=== PATIENT | female | born 2000 | race Caucasian/White ===

== ENCOUNTER 2021-02-12 16:22 | Emergency (ER) | payer MEDICAID, SELFPAY ==
[~2021-02-12] VITALS: Ht 160 cm; Wt 72.7 kg
[2021-02-12 20:51] VITALS: BP 123/58
== END 2021-02-12 21:21 | disposition home or self-care (01) ==
LOC: M ED 16:22
DX: J06.9 Acute upper respiratory infection, unspecified (principal); B34.9 Viral infection, unspecified; F17.210 Nicotine dependence, cigarettes, uncomplicated
CPT/HCPCS: 99283; U0003

== ENCOUNTER 2021-12-02 17:23 | Emergency (ER) | payer MEDICAID, OTHER ==
[~2021-12-02] VITALS: Ht 160 cm; Wt 52.3 kg
[2021-12-02 17:24] VITALS: BP 138/82
[2021-12-02] MEDS ORDERED: NS 1,000 ML IV ONE (18:45)
[2021-12-02 19:36] LABS: BASO % 0.3 % (0.0-1.0); EOS % 0.3 % (0.0-3.0); HEMATOCRIT 38.3 % (36.0-47.0); HEMOGLOBIN 12.7 g/dl (12.0-15.5); LYMPH % 23.1 % (24.0-44.0); MEAN CORPUSCULAR HEMOGLOBIN 31.2 pg (27.0-33.0); MEAN CORPUSCULAR HGB CONC 33.2 g/dl (32.0-36.5); MEAN CORPUSCULAR VOLUME 94.1 fl (80.0-96.0); MONO # 0.4 10^3/uL (0.0-0.8); MONO % 4.9 % (2.0-8.0); NEUTROPHILS # 6.3 10^3/uL (1.5-8.5); NEUTROPHILS % 71.1 % (36.0-66.0); PLATELET COUNT, AUTOMATED 229 10^3/uL (150-450); RED BLOOD COUNT 4.07 10^6/uL (4.00-5.40); WHITE BLOOD COUNT 8.9 10^3/uL (4.0-10.0)
[2021-12-02] MEDS ORDERED: ISOVUE-370 76% 100ML VIAL As Ordered ONE (19:43)
[2021-12-02 19:49] LABS: ALBUMIN 4.4 GM/DL (3.2-5.2); ALT/SGPT 27 U/L (12-78); BILIRUBIN,DIRECT 0.2 MG/DL (0.0-0.2); BILIRUBIN,TOTAL 0.7 MG/DL (0.2-1.0); LIPASE 73 U/L (73-393); TOTAL PROTEIN 7.5 GM/DL (6.4-8.2)
[2021-12-02 20:48] LABS: HCG, SERUM QUALITATIVE NEGATIVE (NEGATIVE)
== END 2021-12-02 21:25 | disposition home or self-care (01) ==
LOC: M ED 17:23
DX: N83.01 Follicular cyst of right ovary (principal)
CPT/HCPCS: 74177; 80047; 80076; 83605; 83690; 84703; 85025; 96360; 99283; Q9967

== ENCOUNTER 2022-10-09 14:58 | Emergency (ER) | payer OTHER ==
[~2022-10-09] VITALS: Ht 160 cm; Wt 62.2 kg
[2022-10-09 15:31] LABS: BASO % 0.2 % (0.0-1.0); EOS # 0.1 10^3/uL (0.0-0.5); EOS % 0.6 % (0.0-3.0); HEMATOCRIT 40.7 % (36.0-47.0); HEMOGLOBIN 13.6 g/dl (12.0-15.5); LYMPH # 2.4 10^3/uL (1.5-5.0); LYMPH % 22.7 % (24.0-44.0); MEAN CORPUSCULAR HEMOGLOBIN 31.1 pg (27.0-33.0); MEAN CORPUSCULAR HGB CONC 33.4 g/dl (32.0-36.5); MEAN CORPUSCULAR VOLUME 93.1 fl (80.0-96.0); MONO # 0.5 10^3/uL (0.0-0.8); MONO % 4.5 % (2.0-8.0); NEUTROPHILS # 7.4 10^3/uL (1.5-8.5); NEUTROPHILS % 71.6 % (36.0-66.0); PLATELET COUNT, AUTOMATED 255 10^3/uL (150-450); RED BLOOD COUNT 4.37 10^6/uL (4.00-5.40); WHITE BLOOD COUNT 10.4 10^3/uL (4.0-10.0)
[2022-10-09 15:59] LABS: BLOOD UREA NITROGEN 6 MG/DL (9-23); CALCIUM LEVEL 9.5 MG/DL (8.5-10.1); CARBON DIOXIDE LEVEL 27 MMOL/L (20-31); CHLORIDE LEVEL 102 MMOL/L (98-107); CREATININE FOR GFR 0.58 MG/DL (0.55-1.30); GLOMERULAR FILTRATION RATE > 60.0 (>60); GLUCOSE, FASTING 84 MG/DL (60-100); POTASSIUM SERUM 4.2 MMOL/L (3.5-5.1); SODIUM LEVEL 135 MMOL/L (136-145)
[2022-10-09 23:54] LABS: HCG, SERUM QUANTITATIVE 128494.9 MIU/ML (<4.2)
[2022-10-10] MEDS ORDERED: MACR100C43 PO (01:48)
[2022-10-10] MEDS ORDERED: NITROFURANTOIN (MACROBID) 100 MG CAP PO ONE (01:50)
[2022-10-10 02:07] VITALS: BP 110/65
== END 2022-10-10 02:09 | disposition home or self-care (01) ==
LOC: M ED 14:58
DX: O23.10 Infections of bladder in pregnancy, unspecified trimester (principal); O99.281 Endocrine, nutritional and metabolic diseases complicating pregnancy, first trimester; Z3A.01 Less than 8 weeks gestation of pregnancy; O34.81 Maternal care for other abnormalities of pelvic organs, first trimester; O34.531 Maternal care for retroversion of gravid uterus, first trimester

== ENCOUNTER → 2022-10-30 | Outpatient (CLI) | payer OTHER ==
[~2022-10-30] MED LIST: MACR100C43 PO
[2022-10-30 15:38] LABS: HEMATOCRIT 36.9 % (36.0-47.0); HEMOGLOBIN 12.4 g/dl (12.0-15.5); MEAN CORPUSCULAR HEMOGLOBIN 31.2 pg (27.0-33.0); MEAN CORPUSCULAR HGB CONC 33.6 g/dl (32.0-36.5); MEAN CORPUSCULAR VOLUME 92.7 fl (80.0-96.0); PLATELET COUNT, AUTOMATED 226 10^3/uL (150-450); RED BLOOD COUNT 3.98 10^6/uL (4.00-5.40); WHITE BLOOD COUNT 8.8 10^3/uL (4.0-10.0)
[2022-10-30 17:07] LABS: GC DNA AMPLIFICATION NEGATIVE (NEGATIVE)
[2022-10-30 21:16] LABS: HIV 1&2 SCREEN CENTAUR NEGATIVE (NEGATIVE)
== END ==
LOC: M PLALAB 13:19
PROVIDERS: ATTEND Advanced Practice Midwife
DX: Z34.91 Encounter for supervision of normal pregnancy, unspecified, first trimester (principal)

== ENCOUNTER → 2022-11-23 | Outpatient (CLI) | payer OTHER ==
[2022-11-23 17:11] LABS: HEMATOCRIT 35.9 % (36.0-47.0); HEMOGLOBIN 11.7 g/dl (12.0-15.5); MEAN CORPUSCULAR HGB CONC 32.6 g/dl (32.0-36.5); MEAN CORPUSCULAR VOLUME 95.2 fl (80.0-96.0); PLATELET COUNT, AUTOMATED 216 10^3/uL (150-450); RED BLOOD COUNT 3.77 10^6/uL (4.00-5.40); WHITE BLOOD COUNT 8.5 10^3/uL (4.0-10.0)
[2022-11-23 18:01] LABS: HIV 1&2 SCREEN CENTAUR NEGATIVE (NEGATIVE)
[2022-11-23 18:10] LABS: HEPATITIS C VIRUS ABY INDEX < 0.0 INDEX (<0.8)
[2022-11-23 18:41] LABS: GC DNA AMPLIFICATION NEGATIVE (NEGATIVE)
== END ==
LOC: M PLALAB 14:54
PROVIDERS: ATTEND Advanced Practice Midwife
DX: Z34.81 Encounter for supervision of other normal pregnancy, first trimester (principal)

== ENCOUNTER → 2022-11-23 | Outpatient (REF) | payer MEDICARE | LOC: M PLALAB 14:43 | PROVIDERS: ATTEND Advanced Practice Midwife | DX: Z34.01 Encounter for supervision of normal first pregnancy, first trimester (principal) ==

== ENCOUNTER → 2022-12-21 | Outpatient (CLI) | payer OTHER | LOC: M WHC 11:57 | PROVIDERS: ATTEND Advanced Practice Midwife | DX: Z36.89 Encounter for other specified antenatal screening (principal); Z3A.18 18 weeks gestation of pregnancy ==

== ENCOUNTER → 2023-01-18 | Outpatient (REF) | payer MEDICARE ==
[2023-01-18 15:11] LABS: GC DNA AMPLIFICATION NEGATIVE (NEGATIVE)
== END ==
LOC: M PLALAB 10:37
PROVIDERS: ATTEND Obstetrics & Gynecology
DX: Z34.02 Encounter for supervision of normal first pregnancy, second trimester (principal)

== ENCOUNTER 2023-02-04 23:39 | Emergency (ER) | payer MEDICARE, OTHER ==
[2023-02-05 03:12] VITALS: BP 124/69
[2023-02-05 03:12] LABS: BASO % 0.2 % (0.0-1.0); EOS # 0.2 10^3/uL (0.0-0.5); EOS % 1.4 % (0.0-3.0); HEMATOCRIT 28.8 % (36.0-47.0); HEMOGLOBIN 9.8 g/dl (12.0-15.5); LYMPH # 2.8 10^3/uL (1.5-5.0); LYMPH % 24.6 % (24.0-44.0); MEAN CORPUSCULAR VOLUME 94.1 fl (80.0-96.0); MONO # 0.7 10^3/uL (0.0-0.8); MONO % 5.7 % (2.0-8.0); NEUTROPHILS # 7.7 10^3/uL (1.5-8.5); NEUTROPHILS % 67.6 % (36.0-66.0); PLATELET COUNT, AUTOMATED 194 10^3/uL (150-450); RED BLOOD COUNT 3.06 10^6/uL (4.00-5.40); WHITE BLOOD COUNT 11.3 10^3/uL (4.0-10.0)
[2023-02-05 03:36] LABS: LIPASE 24 U/L (12-53)
[2023-02-05 03:38] LABS: ALKALINE PHOSPHATASE 49 U/L (46-116); ALT/SGPT 16 U/L (7.0-40); AST/SGOT 20 U/L (<34); BILIRUBIN,TOTAL 0.3 MG/DL (0.3-1.2); BLOOD UREA NITROGEN 13 MG/DL (9-23); CALCIUM LEVEL 8.1 MG/DL (8.5-10.1); CARBON DIOXIDE LEVEL 26 MMOL/L (20-31); CHLORIDE LEVEL 106 MMOL/L (98-107); CREATININE FOR GFR 0.49 MG/DL (0.55-1.30); GLOMERULAR FILTRATION RATE > 60.0 (>60); GLUCOSE, FASTING 79 MG/DL (60-100); POTASSIUM SERUM 3.9 MMOL/L (3.5-5.1); SODIUM LEVEL 138 MMOL/L (136-145); TOTAL PROTEIN 5.8 G/DL (5.7-8.2)
[2023-02-05 05:17] LABS: AMORPHOUS SEDIMENT LARGE (NEGATIVE); APPEARANCE, URINE CLOUDY (CLEAR); BACTERIA, URINE AUTO NEGATIVE (NEGATIVE); BILIRUBIN, URINE AUTO NEGATIVE (NEGATIVE); BLOOD, URINE BLOOD NEGATIVE (NEGATIVE); COLOR, URINE YELLOW (YELLOW); GLUCOSE, URINE (UA) AUTO NEGATIVE (NEGATIVE); KETONE, URINE AUTO NEGATIVE (NEGATIVE); LEUKOCYTE ESTERASE, URINE AUTO 3+ (NEGATIVE); NITRITE, URINE AUTO NEGATIVE (NEGATIVE); PROTEIN, URINE AUTO NEGATIVE (NEGATIVE); RBC, URINE AUTO 1 /HPF (0-3); SPECIFIC GRAVITY URINE AUTO 1.019 (1.002-1.035); SQUAMOUS EPITHELIAL CELL UR AU 9 /HPF (0-6); UROBILINOGEN, URINE AUTO 0.2 mg/dL (0.0-2.0); WBC, URINE AUTO 1 /HPF (0-3)
== END 2023-02-05 04:23 | disposition admitted as inpatient to this hospital (09) ==
LOC: M ED 23:39
DX: O26.899 Other specified pregnancy related conditions, unspecified trimester (principal); M54.2 Cervicalgia; O99.012 Anemia complicating pregnancy, second trimester; Z3A.24 24 weeks gestation of pregnancy

== ENCOUNTER 2023-02-05 04:30 | Outpatient (CLI) | payer OTHER ==
[~2023-02-05] VITALS: Ht 160 cm; Wt 73.2 kg
[2023-02-05] MEDS ORDERED: LR 1,000 ML IV ONE (05:45)
== END 2023-02-05 07:55 | disposition home or self-care (01) ==
LOC: M LDO 04:30
PROVIDERS: ATTEND Specialist
DX: Z04.1 Encounter for examination and observation following transport accident (principal); Z3A.24 24 weeks gestation of pregnancy
CPT/HCPCS: 59025; G0463

== ENCOUNTER → 2023-02-17 | Outpatient (CLI) | payer MEDICARE, OTHER ==
[2023-02-17 16:12] LABS: HEMATOCRIT 32.3 % (36.0-47.0); HEMOGLOBIN 10.5 g/dl (12.0-15.5); MEAN CORPUSCULAR HEMOGLOBIN 31.6 pg (27.0-33.0); MEAN CORPUSCULAR HGB CONC 32.5 g/dl (32.0-36.5); MEAN CORPUSCULAR VOLUME 97.3 fl (80.0-96.0); PLATELET COUNT, AUTOMATED 202 10^3/uL (150-450); RED BLOOD COUNT 3.32 10^6/uL (4.00-5.40); WHITE BLOOD COUNT 9.7 10^3/uL (4.0-10.0)
[2023-02-17 16:38] LABS: GC DNA AMPLIFICATION NEGATIVE (NEGATIVE)
== END ==
LOC: M PLALAB 11:29
PROVIDERS: ATTEND Obstetrics & Gynecology
DX: Z34.02 Encounter for supervision of normal first pregnancy, second trimester (principal)

== ENCOUNTER → 2023-02-17 | Outpatient (REF) | payer MEDICARE | LOC: M PLALAB 15:09 | PROVIDERS: ATTEND Advanced Practice Midwife | DX: Z34.02 Encounter for supervision of normal first pregnancy, second trimester (principal) ==

== ENCOUNTER → 2023-04-28 | Outpatient (REF) | payer MEDICARE | LOC: M PLALAB 07:34 | PROVIDERS: ATTEND Advanced Practice Midwife | DX: Z36.85 Encounter for antenatal screening for Streptococcus B (principal) ==

== ENCOUNTER 2023-05-15 15:03 | Inpatient (IN) | payer MEDICARE, OTHER ==
[2023-05-15] VITALS (34 sets, daily range): BP systolic 94–131; BP diastolic 53–97
[~2023-05-15] VITALS: Ht 160 cm; Wt 83.4 kg
[2023-05-15] MEDS ORDERED: LIDOCAINE 1% MDV 20ML VIAL INFIL PRN (15:40)
[2023-05-15] MEDS ORDERED: OXYTOCIN DRIP 30 UNITS in IV 1 EA IV PRN (15:40)
[2023-05-15] MEDS ORDERED: LACTATED RINGER'S 1000 ML IV STA (15:40)
[2023-05-15] MEDS ORDERED: PRENTAB9 PO (15:47)
[2023-05-15] MEDS ORDERED: COLA100C5 PO (15:47)
[2023-05-15 16:08] LABS: HEMATOCRIT 34.2 % (36.0-47.0); HEMOGLOBIN 11.7 g/dl (12.0-15.5); MEAN CORPUSCULAR HGB CONC 34.2 g/dl (32.0-36.5); MEAN CORPUSCULAR VOLUME 87.7 fl (80.0-96.0); PLATELET COUNT, AUTOMATED 225 10^3/uL (150-450); WHITE BLOOD COUNT 11.4 10^3/uL (4.0-10.0)
[2023-05-15] MEDS: LR 1,000 ML IV SCH ×2 (16:22→18:53)
[2023-05-15] MEDS ORDERED: ONDANSETRON 4MG 2ML VIAL IV PRN (16:35)
[2023-05-15] MEDS ORDERED: ePHEDrine SULFATE 25 MG/5 ML(5MG/ML) SYRINGE IVP PRN (16:35)
[2023-05-15] MEDS ORDERED: FENTANYL/ROPIVACAINE/NACL BAG 100 ML EPIDURAL SCH (16:35)
[2023-05-15] MEDS ORDERED: LR 500 ML IV PRN (16:35)
[2023-05-15] MEDS ORDERED: diphenhydrAMINE 50MG/ML VIAL IV PRN (16:35)
[2023-05-15] MEDS ORDERED: NALOXONE INJ 0.4MG/1ML VIAL IV PRN (16:35)
[2023-05-15] MEDS ORDERED: EPIDURAL/PCA KEYS XX PRN (16:35)
[2023-05-16] MEDS ORDERED: IBUPROFEN 600MG TAB PO PRN
[2023-05-16] MEDS ORDERED: IBUPROFEN 800 MG TAB PO PRN
[2023-05-16] MEDS ORDERED: ACETAMINOPHEN TAB 650MG DOSE (2X325MG) PO PRN
[2023-05-16] MEDS ORDERED: DIBUCAINE 1% OINTMENT 30GM TOP PRN
[2023-05-16] MEDS ORDERED: DOCUSATE SODIUM 100MG CAPSULE PO PRN
[2023-05-16] MEDS ORDERED: RHOGAM 300MCG (1500IU) INJ IM SCH
[2023-05-16] MEDS ORDERED: METHYLERGONOVINE MALEATE 0.2 MG TAB PO PRN
[2023-05-16] MEDS ORDERED: ACETAMINOPHEN 500 MG TAB PO PRN
[2023-05-16 00:09] VITALS: BP 117/66
[2023-05-16 02:00] VITALS: BP 123/66; O2SAT 97
[2023-05-16 06:00] VITALS: BP 109/68; O2SAT 99
[2023-05-16 18:00] VITALS: BP 112/58
[2023-05-16] MEDS: PRENATAL VITAMINS CHEWABLE TABLET PO SCH (19:26)
[2023-05-17 05:42] VITALS: BP 112/54
[2023-05-17 06:00] VITALS: BP 97/56; O2SAT 98
[2023-05-17] MEDS ORDERED: BOOSTRIX VACCINE (TETANUS/DIPHTH/ACEL. PERTUSSIS) 0.5ML SYR IM.IMMUN ONE (09:00)
[2023-05-17] MEDS ORDERED: MEASLES,MUMPS,RUBELLA VACCINE INJ (MMR-II) SC.IMMUN ONE (09:00)
[2023-05-17] MEDS ORDERED: IBUP80TA PO (09:56)
[2023-05-17] MEDS ORDERED: ACET-683 PO (09:56)
[2023-05-17] MEDS: PRENATAL VITAMINS CHEWABLE TABLET PO SCH (10:40)
== END 2023-05-17 15:12 | disposition home or self-care (01) | DRG 560 ==
LOC: M LDO 15:03 → M LDI 15:36 → M OBS 05-16 01:42
PROVIDERS: ADMIT Specialist; ATTEND Specialist
PROC: 10E0XZZ Delivery of Products of Conception, External Approach (ICD-10-PCS; principal; 2023-05-15)
DX: O80 Encounter for full-term uncomplicated delivery (principal); Z37.0 Single live birth; Z3A.38 38 weeks gestation of pregnancy

== ENCOUNTER → 2024-11-18 | Outpatient (CLI) | payer MEDICARE, OTHER ==
[~2024-11-18] MED LIST changes: +ACET-683 PO; +COLA100C5 PO; +IBUP80TA PO; +PRENTAB9 PO
[2024-11-18 13:45] LABS: BASO % 0.6 % (0.0-1.0); EOS # 0.3 10^3/uL (0.0-0.5); EOS % 5.6 % (0.0-3.0); HEMATOCRIT 37.1 % (36.0-47.0); HEMOGLOBIN 12.4 g/dl (12.0-15.5); LYMPH # 2.4 10^3/uL (1.5-5.0); LYMPH % 45.2 % (24.0-44.0); MEAN CORPUSCULAR HEMOGLOBIN 30.8 pg (27.0-33.0); MEAN CORPUSCULAR HGB CONC 33.4 g/dl (32.0-36.5); MEAN CORPUSCULAR VOLUME 92.1 fl (80.0-96.0); MONO # 0.5 10^3/uL (0.0-0.8); MONO % 10.2 % (2.0-8.0); NEUTROPHILS % 38.2 % (36.0-66.0); PLATELET COUNT, AUTOMATED 183 10^3/uL (150-450); RED BLOOD COUNT 4.03 10^6/uL (4.00-5.40); WHITE BLOOD COUNT 5.2 10^3/uL (4.0-10.0)
[2024-11-18 13:50] LABS: APPEARANCE, URINE TURBID (CLEAR); BACTERIA, URINE AUTO 3+ (NEGATIVE); BILIRUBIN, URINE AUTO NEGATIVE (NEGATIVE); BLOOD, URINE BLOOD 1+ (NEGATIVE); COLOR, URINE YELLOW (YELLOW); GLUCOSE, URINE (UA) AUTO NEGATIVE (NEGATIVE); KETONE, URINE AUTO TRACE mg/dL (NEGATIVE); LEUKOCYTE ESTERASE, URINE AUTO 2+ (NEGATIVE); MUCUS, URINE LARGE (NEGATIVE); NITRITE, URINE AUTO NEGATIVE (NEGATIVE); PROTEIN, URINE AUTO 2+ mg/dL (NEGATIVE); RBC, URINE AUTO 20 /HPF (0-3); SPECIFIC GRAVITY URINE AUTO 1.025 (1.002-1.035); SQUAMOUS EPITHELIAL CELL UR AU 153 /HPF (0-6); WBC, URINE AUTO TNTC /HPF (0-3)
[2024-11-18 14:17] LABS: HCG, SERUM QUALITATIVE NEGATIVE (NEGATIVE)
[2024-11-18 14:19] LABS: ALKALINE PHOSPHATASE 36 U/L (35-104); ALT/SGPT 24 U/L (7.0-40); AST/SGOT 21 U/L (<34); BILIRUBIN,TOTAL 0.6 MG/DL (0.3-1.2); BLOOD UREA NITROGEN 8 MG/DL (9-23); CALCIUM LEVEL 9.6 MG/DL (8.5-10.1); CARBON DIOXIDE LEVEL 28 MMOL/L (20-31); CHLORIDE LEVEL 104 MMOL/L (98-107); CHOLESTEROL LEVEL 137 MG/DL (<200); CHOLESTEROL RISK RATIO 2.34 (<5); CREATININE FOR GFR 0.64 MG/DL (0.55-1.30); GLOMERULAR FILTRATION RATE > 60.0 (>60); GLUCOSE, FASTING 90 MG/DL (60-100); HDL CHOLESTEROL 58.3 MG/DL (>40); LDL CHOLESTEROL 62.7 MG/DL (<100); NON-HDL-C 78.7 MG/DL; POTASSIUM SERUM 3.7 MMOL/L (3.5-5.1); SODIUM LEVEL 144 MMOL/L (136-145); TOTAL PROTEIN 6.9 G/DL (5.7-8.2); TRIGLYCERIDES LEVEL 80 MG/DL (<150)
[2024-11-18 14:21] LABS: THYROID STIMULATING HORMONE 3.258 uIU/ML (0.55-4.78)
[2024-11-18 14:34] LABS: HEPATITIS B SURFACE ANTIGEN NEGATIVE (NEGATIVE)
[2024-11-18 14:54] LABS: HEPATITIS B CORE ANTIBODY IGM NEGATIVE (NEGATIVE)
== END ==
LOC: M LAB 13:11
PROVIDERS: ATTEND Physician Assistant
DX: R10.84 Generalized abdominal pain (principal); R80.9 Proteinuria, unspecified